=== PATIENT | male | born 1975 | race Caucasian/White ===

== ENCOUNTER 2018-01-15 09:47 | Emergency (ER) | payer MEDICAID ==
[~2018-01-15] VITALS: Ht 177.8 cm; Wt 79.4 kg
[2018-01-15 09:50] VITALS: Ht 177.8 cm; Wt 79.4 kg
== END 2018-01-15 10:15 | disposition home or self-care (01) ==
LOC: ED 09:47
DX: H65.92 Unspecified nonsuppurative otitis media, left ear (principal)
CPT/HCPCS: J1885